=== PATIENT | female | born 1940 | race Two or more races ===

== ENCOUNTER 2023-03-28 21:18 | Emergency (ER) | payer OTHER ==
[~2023-03-28] VITALS: Ht 165.1 cm; Wt 95.3 kg
== END 2023-03-28 22:30 | disposition home or self-care (01) ==
LOC: ER 21:18
DX: S61.422A Laceration with foreign body of left hand, initial encounter (principal); W26.0XXA Contact with knife, initial encounter; Y93.89 Activity, other specified; Y92.010 Kitchen of single-family (private) house as the place of occurrence of the external cause

== ENCOUNTER 2023-04-06 12:07 | Emergency (ER) | payer OTHER ==
[~2023-04-06] VITALS: Ht 157.5 cm; Wt 72.6 kg
[2023-04-06] MEDS ORDERED: BACTRIM DS TAB1 EACH PO (13:51)
== END 2023-04-06 13:54 | disposition home or self-care (01) ==
LOC: ER 12:07
DX: L02.612 Cutaneous abscess of left foot (principal); E11.9 Type 2 diabetes mellitus without complications; M19.90 Unspecified osteoarthritis, unspecified site; I10 Essential (primary) hypertension